=== PATIENT | female | born 1985 | race African-American/Black ===

== ENCOUNTER 2018-05-01 15:39 | Emergency (ER) | payer BC ==
[~2018-05-01] VITALS: Ht 160 cm; Wt 127.0 kg
[2018-05-01 15:42] VITALS: BP 131/77
[2018-05-01] MEDS ORDERED: MOBIC7.5 MG PO (16:45)
[2018-05-01] MEDS ORDERED: MIRALAX17 GM PO (16:45)
[2018-05-01] MEDS ORDERED: NORCO 5-325 TA1 EACH PO (16:45)
== END 2018-05-01 17:02 | disposition home or self-care (01) ==
LOC: ER 15:39 → EDSEX 15:39 → ER 17:02
DX: M72.2 Plantar fascial fibromatosis (principal)